=== PATIENT | male | born 1955 | race Two or more races ===

== ENCOUNTER 2022-01-28 20:37 | Emergency (ER) | payer MEDICAID, MEDICARE, OTHER ==
[~2022-01-28] VITALS: Ht 177.8 cm; Wt 70.3 kg
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
[2022-01-28] MEDS ORDERED: LIDOCAINE 2% JEL UROJET 10 ML MM ONE (22:01)
--- NOTE | 2022-01-28 22:19 | NUR ---
DURBIN CATHETER REPLACED.
--- NOTE | 2022-01-28 22:19 | NUR ---
URINE COLLECTED AND SENT TO LAB
[2022-01-28 22:28] LABS: BILIRUBIN,URINE NEGATIVE (NEGATIVE); COLOR,URINE YELLOW (YELLOW); LEUKOCYTE ESTERASE ,URINE SMALL (NEGATIVE); NITRITE, URINE NEGATIVE (NEGATIVE); PROTEIN,URINE 30 mg/dl (NEGATIVE); UGLUCOSE 100 MG/DL mg/dL (NEGATIVE); UROBILINOGEN,URINE 0.2 EU/dL (0.2)
[2022-01-28 23:22] LABS: BACTERIA,URINE Few /HPF (None Seen); SQUAMOUS EPITHELIAL CELL,UR None Seen /HPF (None Seen)
[2022-01-28 23:53] VITALS: BP 145/80
--- NOTE | 2022-01-28 23:53 | NUR ---
Patient discharged to home in stable condition. Written and verbal after care instructions given. Patient verbalizes understanding of instruction.
== END 2022-01-28 23:54 | disposition home or self-care (01) ==
LOC: ER 20:39
DX: T83.011A Breakdown (mechanical) of indwelling urethral catheter, initial encounter (principal); R33.9 Retention of urine, unspecified; R31.9 Hematuria, unspecified; N18.9 Chronic kidney disease, unspecified
CPT/HCPCS: 51702; 81001; 87086; 99284; J3490; 87186-TC